=== PATIENT | male | born 1940 | race Caucasian/White ===

== ENCOUNTER 2021-09-27 09:45 | Emergency (ER) | payer MEDICARE, SELFPAY ==
[2021-09-27] VITALS (22 sets, daily range): BP systolic 115–170; BP diastolic 60–84; PULSE 41–83; RESP 14–21; TEMP 36.4; O2SAT 92–99; BMI 40.1
--- NOTE | 2021-09-27 09:51 | DI.RAD.S_ITS ---
PROCEDURE: XR CHEST 2V INDICATIONS: shortness of breath TECHNIQUE: 2 views of the chest were acquired. COMPARISON: LOCATED WITHIN [facility], , CHEST 2VW, 06/02/2013, 10:26. FINDINGS: Surgical changes and devices: None. Lungs and pleura: Mild diffuse interstitial prominence. Small bilateral pleural effusions larger on the left. Mediastinum: Mediastinal contours are stable. Heart size is enlarged. Atherosclerotic calcifications of the aortic arch are present. Bones and chest wall: No suspicious bony abnormalities. Soft tissues appear unremarkable. IMPRESSION: Cardiomegaly with findings suggesting mild pulmonary edema/CHF. Dictated by: Charles Avendano M.D. on 09/27/2021 at 10:23 Approved by: Charles Avendano M.D. on 09/27/2021 at 10:25
[2021-09-27 10:53] LABS: Add Manual Diff / Slide Review NO; Basophils Absolute Auto 0 /uL (0-100); Basophils Percent Auto 0.9 % (0-2); Eosinophils Absolute Auto 300 /uL (0-450); Eosinophils Percent Auto 5.6 % (2-4); Hematocrit 38.9 % (41-53); Hemoglobin 12.8 g/dL (13.5-17.5); Lymphocytes Absolute Auto 900 /uL (1100-4500); Lymphocytes Percent Auto 19.3 % (25-40); Mean Corpuscular HGB Conc 32.9 % (30-36); Mean Corpuscular Hemoglobin 30.4 PG (26-34); Mean Corpuscular Volume 92.3 fL (80-100); Monocytes Absolute Auto 400 /uL (0-900); Monocytes Percent Auto 9.6 % (3-14); Neutrophils Absolute Auto 2900 /uL (1500-7000); Neutrophils Percent Auto 64.6 % (50-75); Platelet Count 116 X10^3/uL (150-400); Red Blood Cell Count 4.21 X10^6/uL (4.5-5.9); Red Cell Distribution Width 14.9 % (11.6-14.8); White Blood Cell Count 4.5 X10^3/uL (4.5-11.0)
--- NOTE | 2021-09-27 10:54 | ED.SOB ---
HPI - SOB/Dyspnea General Chief Complaint: Weakness Stated Complaint: Lethargy 2 wks,edema,dx new afib yesterday Time Seen by Provider: 09/27/21 10:10 Source: patient Mode of arrival: EMS Limitations: no limitations History of Present Illness HPI Narrative: Patient is an 81-year-old male with no prior history presenting today with increasing swelling in his legs and weakness. He was seen evaluated at walk-in clinic yesterday where he was diagnosed with new onset atrial fibrillation. He was given Lasix for his lower extremities. He denies any orthopnea states that sleeps in a reclined position any way. He denies fever chills or chest pain. He is here mostly for pain in his legs and the swelling. He was started on a low-dose of Lasix yesterday but he has not really taken very many. Related Data Previous Rx's Medication Instructions Recorded furosemide 20 mg tablet (Lasix) 20 mg PO BID #30 tabs 09/27/21 Allergies Allergy/AdvReac Type Severity Reaction Status Date / Time simvastatin Allergy Verified 09/27/21 09:52 Review of Systems Review of Systems Narrative: GENERAL: Denies chills, fatigue, malaise, fever, sweats, travel HEENT: Denies sinus pain, ear pain, sore throat, difficulty swallowing, neck pain RESPIRATORY: Denies dyspnea, cough, wheezing, hemoptysis, sputum. CARDIOVASCULAR: Denies chest pain, palpitations, orthopnea, edema GASTROINTESTINAL: Denies nausea, vomiting, abdominal pain, diarrhea, constipation, melena. : Denies dysuria, frequency, incontinence, hematuria, urinary retention, flank pain. MUSCULOSKELETAL: Denies weakness, joint pain, or bony pain SKIN: No rash, no erythema, no pruritus NEUROLOGIC: Denies weakness, dizziness, headache, numbness, change in speech, confusion PSYCHIATRIC: No concerning psychosocial issues. 12 point review of systems is negative except for those stated above and HPI Patient History Social History Smoking Status: Unknown if ever smoked Smoking Status: Unknown if ever smoked alcohol intake frequency: 0-2 drinks per day Substance Use Type: does not use Exam Initial Vital Signs Initial Vital Signs: Vital Signs Pulse Rate 51 L 09/27/21 09:49 Blood Pressure 170/78 H 09/27/21 09:49 Pulse Oximetry 94 09/27/21 09:49 GENERAL: Alert 81-year-old male BMI 40 HEENT: Head atraumatic,EOMI, pupils reactive, face symmetric, [moist] mucous membranes CARDIOVASCULAR: Regular rate and rhythm without murmurs, rubs or gallops. RESPIRATORY: Breath sounds equal bilaterally, no wheezes rales or rhonchi. ABDOMEN: Soft, nontender. Normoactive bowel sounds all 4 quadrants. No guarding or rebound. EXTREMITIES: Normal range of motion, no clubbing or edema. Neurovascularly intact. Bilateral lower extremity edema +3 NEUROLOGICAL: Alert and oriented x4.Normal gait and speech. SKIN: Warm, dry, no laceration, no petechiae, no rashes or lesions. Course Orders Ordered: Discontinued Medications Furosemide (Furosemide 40 Mg/4 Ml Vial) 40 mg IV NOW ONE Stop: 09/27/21 11:26 Last Admin: 09/27/21 12:12 Dose: 40 mg Documented By: SB Vital Signs Vital signs: Vital Signs - 8 hr 09/27/21 12:30 09/27/21 12:31 09/27/21 12:31 Pulse Rate 50 L 51 L Respiratory Rate 17 21 Blood Pressure 127/60 Pulse Oximetry 94 94 09/27/21 12:46 09/27/21 12:46 09/27/21 13:00 Pulse Rate 63 Respiratory Rate 18 Blood Pressure 136/84 152/67 H Pulse Oximetry 95 09/27/21 13:00 09/27/21 13:13 09/27/21 13:13 Pulse Rate 50 L 64 Respiratory Rate 17 17 Blood Pressure 134/65 Pulse Oximetry 95 09/27/21 13:30 09/27/21 13:31 09/27/21 13:31 Pulse Rate 49 L 53 L Respiratory Rate 17 15 Blood Pressure 121/63 Pulse Oximetry 99 97 09/27/21 13:47 09/27/21 13:47 09/27/21 14:00 Pulse Rate 83 Respiratory Rate Blood Pressure 124/61 137/72 Pulse Oximetry 92 09/27/21 14:00 09/27/21 14:30 09/27/21 14:31 Pulse Rate 44 L Respiratory Rate 16 16 Blood Pressure 147/67 H Pulse Oximetry 98 97 09/27/21 14:31 09/27/21 15:00 09/27/21 15:01 Pulse Rate 54 L Respiratory Rate 15 14 Blood Pressure 135/81 Pulse Oximetry 96 97 MDM - SOB/Dyspnea Lab Data Result diagrams: 09/27/21 10:40 09/27/21 10:40 Labs: Lab Results 09/27/21 09/27/21 09/27/21 Range/Units 10:40 10:40 10:40 WBC 4.5 (4.5-11.0) X10^3/uL RBC 4.21 L (4.5-5.9) X10^6/uL Hgb 12.8 L (13.5-17.5) g/dL Hct 38.9 L (41-53) % MCV 92.3 (80-100) fL MCH 30.4 (26-34) PG MCHC 32.9 (30-36) % RDW 14.9 H (11.6-14.8) % Plt Count 116 L (150-400) X10^3/uL Neut % (Auto) 64.6 (50-75) % Lymph % (Auto) 19.3 L (25-40) % [place] % (Auto) 9.6 (3-14) % Eos % (Auto) 5.6 H (2-4) % Baso % (Auto) 0.9 (0-2) % Neut # (Auto) 2900 (3748-5008) /uL Lymph # (Auto) 900 L (0196-6424) /uL [place] # (Auto) 400 (0-900) /uL Eos # (Auto) 300 (0-450) /uL Baso # (Auto) 0 (0-100) /uL PT 12.9 H (10.1-12.7) SECONDS INR 1.2 (0.9-1.3) D-Dimer (<230) ng/mL Sodium 140 (137-145) mmol/L Potassium 5.1 (3.4-5.1) mmol/L Chloride 107 (98-107) mmol/L Carbon Dioxide 29 (22-32) mmol/L BUN 29 H (9-20) mg/dL Creatinine 1.23 (0.66-1.25) mg/dL Estimated GFR 59 L (>60) mL/min BUN/Creatinine Ratio 23.6 H (6-22) Glucose 123 H (80-110) mg/dL Lactate (0.7-2.1) mmol/L Calcium 8.6 (8.4-10.2) mg/dL Total Bilirubin 1.0 (0.2-1.3) mg/dL AST 29 (17-59) IU/L ALT 30 (<50) IU/L Alkaline Phosphatase 90 (38-126) U/L Total Creatine Kinase (55-170) U/L CK-MB (CK-2) CK-MB (CK-2) Rel Index Troponin I (0.01-0.034) ng/mL NT-Pro-B Natriuret Pep 1230 H (<450) pg/mL Total Protein 6.3 (6.3-8.2) g/dL Albumin 3.8 (3.5-5.0) g/dL Globulin 2.5 (1.7-4.1) g/dL Albumin/Globulin Ratio 1.5 (1.0-2.8) 09/27/21 09/27/21 09/27/21 Range/Units 10:40 10:40 10:40 WBC (4.5-11.0) X10^3/uL RBC (4.5-5.9) X10^6/uL Hgb (13.5-17.5) g/dL Hct (41-53) % MCV (80-100) fL MCH (26-34) PG MCHC (30-36) % RDW (11.6-14.8) % Plt Count (150-400) X10^3/uL Neut % (Auto) (50-75) % Lymph % (Auto) (25-40) % [place] % (Auto) (3-14) % Eos % (Auto) (2-4) % Baso % (Auto) (0-2) % Neut # (Auto) (3066-8550) /uL Lymph # (Auto) (9432-0138) /uL [place] # (Auto) (0-900) /uL Eos # (Auto) (0-450) /uL Baso # (Auto) (0-100) /uL PT (10.1-12.7) SECONDS INR (0.9-1.3) D-Dimer 326 H (<230) ng/mL Sodium (137-145) mmol/L Potassium (3.4-5.1) mmol/L Chloride (98-107) mmol/L Carbon Dioxide (22-32) mmol/L BUN (9-20) mg/dL Creatinine (0.66-1.25) mg/dL Estimated GFR (>60) mL/min BUN/Creatinine Ratio (6-22) Glucose (80-110) mg/dL Lactate 1.0 (0.7-2.1) mmol/L Calcium (8.4-10.2) mg/dL Total Bilirubin (0.2-1.3) mg/dL AST (17-59) IU/L ALT (<50) IU/L Alkaline Phosphatase (38-126) U/L Total Creatine Kinase 59 (55-170) U/L CK-MB (CK-2) TNP CK-MB (CK-2) Rel Index TNP Troponin I < 0.012 (0.01-0.034) ng/mL NT-Pro-B Natriuret Pep (<450) pg/mL Total Protein (6.3-8.2) g/dL Albumin (3.5-5.0) g/dL Globulin (1.7-4.1) g/dL Albumin/Globulin Ratio (1.0-2.8) Imaging Data Chest x-ray: Radiologist's Impression: [address] [address] XRay Report Signed Patient: Partha Borrero MR#: [id number] : 1940 Acct:[id number] Age/Sex: 81 / M Date of Service: 09/27/21 Loc: ED Accession Number: [id number] ?? Procedure: XR chest 2V Ordering Provider: Fatou Abarca D.O. PROCEDURE:? XR CHEST 2V ? INDICATIONS:? shortness of breath ? TECHNIQUE:? 2 views of the chest were acquired.? ? COMPARISON:? [facility], , CHEST 2VW, 06/02/2013, 10:26. ? FINDINGS:? ? Surgical changes and devices:? None.? ? Lungs and pleura:? Mild diffuse interstitial prominence.? Small bilateral pleural effusions larger on the left. ? Mediastinum:? Mediastinal contours are stable.? Heart size is enlarged.? Atherosclerotic calcifications of the aortic arch are present. ? Bones and chest wall:? No suspicious bony abnormalities.? Soft tissues appear unremarkable.? ? IMPRESSION:? Cardiomegaly with findings suggesting mild pulmonary edema/CHF. ? ? Dictated by: Charles Avendano M.D. on 09/27/2021 at 10:23 ? ? Approved by: Charles Avendano M.D. on 09/27/2021 at 10:25 ? ECG Data Interpretation: Atrial fibrillation rate [address] changes MDM Narrative Medical decision making narrative: Patient does have new onset atrial fibrillation. He is currently rate controlled even sometimes mildly bradycardic. He has bilateral lower extremity edema. He has diuresed here in the emergency department overall. He is ambulatory in the ED overall feels significantly better. D-dimer minimally elevated symptoms are more consistent with fluid overload. Heart rate ranges anywhere from 3 up into the 60s but does not stay long in the 30s patient is relatively asymptomatic. He would like to go home. Start him on diuresis. Probably needs something more than aspirin. Patient states that he fell a few weeks ago he has an abrasion and healing scab on his head. He says he does not usually fall. However I am hesitant to put him on stronger anticoagulation at this time. I encouraged him to take aspirin discussed risks and benefits with him. He can follow up this primary care provider. Discharge Plan Departure Patient Disposition: Home Clinical Impression: Congestive heart failure Instructions: Heart Failure Activity Restrictions/Additional Instructions: *You have been diagnosed with congestive heart failure *What to do: You will need further cardiac evaluation including echocardiogram *Continue to take medications as directed Lasix 20 mg twice a day for 4 days then start once daily *Follow up with your primary care provider in 2-3 days or call [phone] Your primary care or Cardiology *Return to ER if you should have increased swelling, shortness of breath, or any new, worsening or concerning symptoms Prescriptions: New furosemide [Lasix] 20 mg tablet 20 mg PO BID Qty: 30 0RF Visit Report Forms: Patient Portal/API
[2021-09-27 10:59] LABS: INR 1.2 (0.9-1.3); Prothrombin Time 12.9 SECONDS (10.1-12.7)
[2021-09-27 11:08] LABS: Alanine Aminotransferase 30 IU/L (<50); Albumin 3.8 g/dL (3.5-5.0); Albumin Globulin Ratio 1.5 (1.0-2.8); Alkaline Phosphatase 90 U/L (38-126); Aspartate Aminotransferase 29 IU/L (17-59); BUN Creatinine Ratio 23.6 (6-22); Blood Urea Nitrogen 29 mg/dL (9-20); Calcium 8.6 mg/dL (8.4-10.2); Carbon Dioxide 29 mmol/L (22-32); Chloride 107 mmol/L (98-107); Creatine Kinase 59 U/L (55-170); Estimated Glomerular Filt Rate 59 mL/min (>60); Globulin 2.5 g/dL (1.7-4.1); Glucose 123 mg/dL (80-110); HEMOLYSIS 40 (0-50); Potassium 5.1 mmol/L (3.4-5.1); Sodium 140 mmol/L (137-145); Total Protein 6.3 g/dL (6.3-8.2)
[2021-09-27 11:17] LABS: NT-proBNP (BNP-Adult 18+) 1230 pg/mL (<450)
[2021-09-27 11:20] LABS: Troponin I < 0.012 ng/mL (0.01-0.034)
[2021-09-27] MEDS: FUROSEMIDE 40 MG/4 ML VIAL IV (12:12)
[2021-09-27 14:46] LABS: D Dimer 326 ng/mL (<230)
== END 2021-09-27 15:47 | disposition home or self-care (01) ==
PROVIDERS: Emergency Provider Emergency Medicine
DX: I50.9 Heart failure, unspecified (principal); R06.02 Shortness of breath; R00.1 Bradycardia, unspecified
CPT/HCPCS: 71046; 80053; 82550; 83605; 83880; 84484; 85025; 85379; 85610; 93005; 96374; 99284; J1940